=== PATIENT | male | born 1970 | race Two or more races ===

== ENCOUNTER 2019-10-09 15:26 | Inpatient (IN) | payer OTHER ==
[~2019-10-09] VITALS: Ht 180.3 cm; Wt 73.5 kg
[2019-10-09 15:49] VITALS: BP 118/76
--- NOTE | 2019-10-09 15:52 | NUR ---
ED Nurse Note: pt walked in to ED for C/O abdominal pain, distention, bloating, nausea, constipation, unable to opass gas x 2 months. PT and his PMD believe he may have SBO. Pt is alert x 4. VSS as documented.
[2019-10-09] MEDS ORDERED: Dicyclomine HCl 10mg/5ml oral soln ORAL ONE (16:00)
[2019-10-09] MEDS ORDERED: Omnipaque-300 100ml vial INJ PRN (16:00)
[2019-10-09] MEDS ORDERED: Lidocaine 2% Visc 15ml soln ORAL ONE (16:00)
--- NOTE | 2019-10-09 16:05 | Emergency Room Report ---
History of Present Illness General Chief Complaint: Abdominal Pain Source: Patient Present Illness HPI Patient is a 48-year-old male presents after increased left lower abdominal pain. Patient reports having constant pain for the past 3 to 4 days. He reports having decreased bowel movements and increased straining with attempt to stool. He reports having previous CT imaging in the past which showed some possible omental hernia. Patient had previous colonoscopy which she reports was negative. He states this occurred approximately 1 to 2 months ago. He denies any vomiting. Denies any other locations of pain. Is followed by Dr. Zapata. Prior Imaging studies at [facility]. Denies flatus. Denies fever or any chills. COVID-19 risk:Contact w/high r: No COVID-19 risk:Travel to affect: No Has patient experienced hughes: No Allergies: Coded Allergies: No Known Allergies (Unverified , 10/09/19) Patient History Past Medical History: see triage record Past Surgical History: none Reviewed Nursing Documentation: PMH: Agreed; PSxH: Agreed Nursing Documentation-PMH Past Medical History: No Stated History Review of Systems All Other Systems: negative except mentioned in HPI Physical Exam Vital Signs Date Time Temp Pulse Resp B/P (MAP) Pulse Ox O2 Delivery O2 Flow Rate FiO2 10/09/19 15:33 90.0 79 18 118/76 (90) 96 Room Air Sp02 EP Interpretation: reviewed, normal General Appearance: normal inspection, well appearing, no apparent distress, alert, GCS 15 Head: atraumatic ENT: normal ENT inspection, hearing grossly normal, normal voice Neck: normal inspection, full range of motion, supple, no bony tend Respiratory: normal inspection, lungs clear, normal breath sounds, no respiratory distress, no retraction, no wheezing Cardiovascular #1: regular rate, rhythm, no edema Gastrointestinal: normal inspection, normal bowel sounds, soft, no guarding, no hernia, other - left lower abd mild tenderness. Genitourinary: no CVA tenderness Musculoskeletal: normal inspection, back normal, normal range of motion Neurologic: alert, motor strength/tone normal, oracle distribution consultant III-XII nml as tested, oriented x3, responsive, speech normal, normal inspection Psychiatric: normal inspection, judgement/insight normal, mood/affect normal Skin: no rash Medical Decision Making Diagnostic Impression: Primary Impression: Intractable abdominal pain ER Course Patient presented for abdominal pain. Differential diagnosis includes not limited to fecal impaction, bowel obstruction, hernia, among others. Because of complexity of patient's case laboratory tests and imaging studies were ordered.CT imaging of the abdomen pelvis read by radiology showed no evidence of acute abdominal process with liver lesion in the tip of the right hepatic lobe 3 cm in diameter patient was discussed with Dr. Love per PMD request of patients Dr. Zapata. Patient will be admitted to Dr. Weaver per Dr. Love request. Labs Test 10/09/19 15:45 White Blood Count 5.6 K/UL (4.8-10.8) Red Blood Count 4.87 M/UL (4.70-6.10) Hemoglobin 14.8 G/DL (14.2-18.0) Hematocrit 43.5 % (42.0-52.0) Mean Corpuscular Volume 89 FL (80-99) Mean Corpuscular Hemoglobin 30.4 PG (27.0-31.0) Mean Corpuscular Hemoglobin Concent 34.1 G/DL (32.0-36.0) Red Cell Distribution Width 12.5 % (11.6-14.8) Platelet Count 160 K/UL (150-450) Mean Platelet Volume 7.0 FL (6.5-10.1) Neutrophils (%) (Auto) 72.6 % (45.0-75.0) Lymphocytes (%) (Auto) 20.7 % (20.0-45.0) Monocytes (%) (Auto) 4.8 % (1.0-10.0) Eosinophils (%) (Auto) 1.2 % (0.0-3.0) Basophils (%) (Auto) 0.7 % (0.0-2.0) Prothrombin Time 10.1 SEC (9.30-11.50) Prothromb Time International Ratio 0.9 (0.9-1.1) Activated Partial Thromboplast Time 27 SEC (23-33) Urine Color Pale yellow Urine Appearance Clear Urine pH 7 (4.5-8.0) Urine Specific [place] 1.010 (1.005-1.035) Urine Protein Negative (NEGATIVE) Urine Glucose (UA) Negative (NEGATIVE) Urine Ketones 1+ (NEGATIVE) Urine Blood Negative (NEGATIVE) Urine Nitrite Negative (NEGATIVE) Urine Bilirubin Negative (NEGATIVE) Urine Urobilinogen Normal MG/DL (0.0-1.0) Urine Leukocyte Esterase Negative (NEGATIVE) Sodium Level 144 MMOL/L (136-145) Potassium Level 4.1 MMOL/L (3.5-5.1) Chloride Level 106 MMOL/L (98-107) Carbon Dioxide Level 29 MMOL/L (21-32) Anion Gap 9 mmol/L (5-15) Blood Urea Nitrogen 20 mg/dL (7-18) Creatinine 1.0 MG/DL (0.55-1.30) Estimat Glomerular Filtration Rate > 60 mL/min (>60) Glucose Level 82 MG/DL (74-106) Calcium Level 9.4 MG/DL (8.5-10.1) Total Bilirubin 0.3 MG/DL (0.2-1.0) Aspartate Amino Transf (AST/SGOT) 16 U/L (15-37) Alanine Aminotransferase (ALT/SGPT) 20 U/L (12-78) Alkaline Phosphatase 54 U/L (46-116) Total Protein 7.3 G/DL (6.4-8.2) Albumin 4.2 G/DL (3.4-5.0) Globulin 3.1 g/dL Albumin/Globulin Ratio 1.4 (1.0-2.7) Lipase 169 U/L (73-393) Last Vital Signs Date Time Temp Pulse Resp B/P (MAP) Pulse Ox O2 Delivery O2 Flow Rate FiO2 10/09/19 15:49 98.0 84 18 118/76 96 Room Air Status: unchanged Disposition: ADMITTED INPATIENT Condition: Serious Scripts Temazepam* (RESTORIL*) 15 Mg Capsule 15 MG ORAL HSPRN PRN for 30 Days, #30 CAP 1 Refill Prov: Sangeetha Nicole M.D. 10/11/19 Linaclotide (LINZESS) 145 Mcg Capsule 145 MCG PO DAILY for 30 Days, #30 CAP Prov: Sangeetha NicoleDGerri 10/11/19 Lorazepam* (ATIVAN*) 1 Mg Tablet 1 MG ORAL Q12HR PRN for 14 Days, #28 TAB Prov: Sangeetha Nicole M.D. 10/11/19 Jonathan Aguillon MD Oct 09, 2019 16:05
--- NOTE | 2019-10-09 16:05 | NUR ---
ED Nurse Note: blood and urine sent to lab
[2019-10-09 16:22] LABS: APPEARANCE,URINE CLEAR; BILIRUBIN, URINE NEGATIVE (NEGATIVE); COLOR,URINE PALE YELLOW; GLUCOSE, URINE (UA) NEGATIVE (NEGATIVE); KETONES,URINE 1+ (NEGATIVE); LEUKOCYTE ESTERASE ,URINE NEGATIVE (NEGATIVE); NITRITE,URINE NEGATIVE (NEGATIVE); PH,URINE 7 (4.5-8.0); PROTEIN,URINE NEGATIVE (NEGATIVE); UROBILINOGEN,URINE NORMAL MG/DL (0.0-1.0)
[2019-10-09 16:27] LABS: INR 0.9 (0.9-1.1)
[2019-10-09 16:29] LABS: BASOPHILS % (AUTO) 0.7 % (0.0-2.0); EOSINOPHILS % (AUTO) 1.2 % (0.0-3.0); HEMATOCRIT 43.5 % (42.0-52.0); HEMOGLOBIN 14.8 G/DL (14.2-18.0); LYMPHOCYTES % (AUTO) 20.7 % (20.0-45.0); MEAN CORPUSCULAR VOLUME 89 FL (80-99); MONOCYTES % (AUTO) 4.8 % (1.0-10.0); NEUTROPHILS % (AUTO) 72.6 % (45.0-75.0); PLATELET COUNT 160 K/UL (150-450); RED BLOOD COUNT 4.87 M/UL (4.70-6.10); RED CELL DISTRIBUTION WIDTH 12.5 % (11.6-14.8); WHITE BLOOD COUNT 5.6 K/UL (4.8-10.8)
[2019-10-09 16:33] LABS: ANION GAP 9 mmol/L (5-15); BLOOD UREA NITROGEN 20 mg/dL (7-18); CALCIUM 9.4 MG/DL (8.5-10.1); CARBON DIOXIDE 29 MMOL/L (21-32); CHLORIDE 106 MMOL/L (98-107); POTASSIUM 4.1 MMOL/L (3.5-5.1); SODIUM 144 MMOL/L (136-145)
[2019-10-09 16:37] LABS: ALANINE AMINOTRANSFERASE 20 U/L (12-78); ALBUMIN 4.2 G/DL (3.4-5.0); ALBUMIN/GLOBULIN RATIO 1.4 (1.0-2.7); ALKALINE PHOSPHATASE 54 U/L (46-116); ASPARTATE AMINO TRANSFERASE 16 U/L (15-37); BILIRUBIN,TOTAL 0.3 MG/DL (0.2-1.0)
--- NOTE | 2019-10-09 16:59 | NUR ---
ED Nurse Note: Pt in radiology
--- NOTE | 2019-10-09 17:22 | Diagnostic Imaging Report ---
Clinical Indication: Increased left lower abdominal pain for the past 3-4 days Technique: No oral contrast utilized, per emergency room physician request IV administration nonionic contrast. Venous phase spiral acquisition obtained through the abdomen and pelvis. Multiplanar reconstructions were generated. Total dose length product 220 mGycm. CTDIvol(s) 4 mGy. Dose reduction achieved using automated exposure control Comparison: none Findings: Lack of enteric contrast limits assessment of the GI tract. No evidence of colonic diverticulosis or diverticulitis. The appendix is normal. No small bowel distention. No free or loculated intraperitoneal gas or fluid is evident. The distal esophagus, stomach, duodenum are unremarkable. The liver demonstrates a lesion at the tip of the right hepatic lobe which measures 3 cm in diameter. This is mostly hypoattenuation, but demonstrates some intense peripheral enhancement. There there are 2 1 cm diameter cysts in segment 8. Other subcentimeter low-attenuation liver lesions are demonstrated which are too small to characterize. The pancreas, spleen, adrenals are unremarkable. The kidneys demonstrate cysts bilaterally. No renal or ureteral calculi, hydronephrosis, or hydroureter demonstrated. The bladder is unremarkable. No pelvic mass or adenopathy. The included lung bases are clear. The bones are unremarkable. Impression: Limited assessment of the GI tract, due to lack of enteric contrast administration No definite acute abnormality 3 cm right lobe liver lesion, appearance highly suggestive of but not diagnostic for benign hemangioma. Recommend further evaluation with hemangioma protocol CT or MRI Incidental finding of hepatic and renal cysts. Subcentimeter low-attenuation liver lesions are too small to characterize, most likely represent benign simple cysts and no further follow-up is necessary. The CT scanner at [facility] is accredited by the [employer] and the scans are performed using protocols designed to limit radiation exposure to as low as reasonably achievable to attain images of sufficient resolution adequate for diagnostic evaluation.
--- NOTE | 2019-10-09 17:59 | NUR ---
ED Nurse Note: Dr. Love @ bedside
--- NOTE | 2019-10-09 18:43 | Consultation ---
History of Present Illness General Date patient seen: Oct 09, 2019 Reason for Hospitalization: Abdominal Pain Present Illness HPI This is a very pleasant 48-year-old male who presented to [facility] for evaluation of worsening abdominal pain and minimal bowel movements and flatus. I was initially called by the patient's primary care physician Dr. Perez earlier this morning to discuss patient's care and plan. A portion of the history was provided by the patient's primary care physician as well as prior testing that had been done. I advised PCP and patient to follow-up with me as an outpatient but as the day progressed patient felt he needed to be seen urgently as pain was persistent and he has been worsening over a period of time and therefore did not feel safe or comfortable at home. Patient came to the emerge department for evaluation and history is with obtained from him personally. He states that over the past 2 months he is developed worsening decrease in bowel movements with inability to tolerate oral intake of food as well. He states that he is lost nearly 30 pounds over the past 2 months and is becoming increasingly more fatigued. He describes a left lower quadrant abdominal pain without associated nausea or emesis. He states that initially 2 months ago he started noticing changes in his bowel habits but is progressively worsened and he has not had a bowel movement or flatus in 3 days now. He states the only thing he can recall is a picture he shows me of some mucus with brown sediment in a toilet bowl over the past few days. He cannot recall the last normal bowel movement he had. States he has tried multiple over-the- counter laxatives without any significant improvement and is even more concerned that after all his laxatives he still not having bowel movements as they may be causing him more discomfort. He had a colonoscopy in August which identified normal findings. States last good bowel movement he had was prior to the colonoscopy and the [facility] did clear him out for the colonoscopy. He states ever since colonoscopy he feels it may have been worsening as well. Pain described as cramping left lower quadrant pain without radiation. He is otherwise healthy and has had a significant work-up including hepatitis and HIV and thyroid studies as an outpatient. Liver studies which are all normal he has had a GI transit study at [facility] but results currently not available. He had an MRI at [facility] and states that only identified a hemangioma. Patient denies any past medical history. He denies any drug use. He denies any past surgeries. He denies any medication use. Allergies: Coded Allergies: No Known Allergies (Unverified , 10/09/19) Patient History History Provided By: Patient Healthcare decision maker Resuscitation status Advanced Directive on File Past Medical/Surgical History Past Medical/Surgical History: (1) Intractable abdominal pain Review of Systems Review of Symptoms General ROS: no weight loss or fever Psychological ROS: no depression or mood changes, no memory loss Ophthalmic ROS: no visual changes or eye irritation ENT ROS: no nasal congestion, hearing loss, dizziness Allergy and Immunology ROS: no allergic symptoms or urticaria Hematological and Lymphatic ROS: no swollen glands, unusual bleeding or bruising Endocrine ROS: no polyuria, polydipsia, weight changes, temperature intolerance Respiratory ROS: no cough, shortness of breath, or wheezing Cardiovascular ROS: no chest pain or dyspnea on exertion Gastrointestinal ROS: denies abdominal pain, bright red blood in stool. Musculoskeletal ROS: no myalgias or arthralgias Neurological ROS: no TIA or stroke symptoms Dermatological ROS: no new or changing skin lesions, rashes or pruritis Physical Exam Physical Exam General appearance: alert, cooperative, no distress, appears stated age Head: Normocephalic, without obvious abnormality, atraumatic Eyes: conjunctivae/corneas clear. PERRL, EOM's intact. Fundi benign Throat: Lips, mucosa, and tongue normal. Teeth and gums normal Neck: supple, symmetrical, trachea midline, no adenopathy, thyroid: not enlarged, symmetric, no tenderness/mass/nodules, no carotid bruit and no JVD Lungs: clear to auscultation bilaterally Heart: regular rate and rhythm, S1, S2 normal, no murmur, click, rub or gallop Abdomen: soft, LLQ tender. Bowel sounds decreased. No masses, no organomegaly. umbilical ventral hernia non reducible fat. left groin tender on exam around inguinal canal Extremities: extremities normal, atraumatic, no cyanosis or edema Pulses: 2+ and symmetric Skin: Skin color, texture, turgor normal. No rashes or lesions Neurologic: Grossly normal Digital rectal exam performed at bedside did not identify any significant abnormalities. The rectal vault was fairly empty given CT findings which is mildly abnormal Last 24 Hour Vital Signs Date Time Temp Pulse Resp B/P (MAP) Pulse Ox O2 Delivery O2 Flow Rate FiO2 10/09/19 15:49 98.0 84 18 118/76 96 Room Air 10/09/19 15:49 84 18 Room Air 10/09/19 15:33 90.0 79 18 118/76 (90) 96 Room Air Laboratory Tests Test 10/09/19 15:45 White Blood Count 5.6 K/UL (4.8-10.8) Red Blood Count 4.87 M/UL (4.70-6.10) Hemoglobin 14.8 G/DL (14.2-18.0) Hematocrit 43.5 % (42.0-52.0) Mean Corpuscular Volume 89 FL (80-99) Mean Corpuscular Hemoglobin 30.4 PG (27.0-31.0) Mean Corpuscular Hemoglobin Concent 34.1 G/DL (32.0-36.0) Red Cell Distribution Width 12.5 % (11.6-14.8) Platelet Count 160 K/UL (150-450) Mean Platelet Volume 7.0 FL (6.5-10.1) Neutrophils (%) (Auto) 72.6 % (45.0-75.0) Lymphocytes (%) (Auto) 20.7 % (20.0-45.0) Monocytes (%) (Auto) 4.8 % (1.0-10.0) Eosinophils (%) (Auto) 1.2 % (0.0-3.0) Basophils (%) (Auto) 0.7 % (0.0-2.0) Prothrombin Time 10.1 SEC (9.30-11.50) Prothromb Time International Ratio 0.9 (0.9-1.1) Activated Partial Thromboplast Time 27 SEC (23-33) Urine Color Pale yellow Urine Appearance Clear Urine pH 7 (4.5-8.0) Urine Specific [place] 1.010 (1.005-1.035) Urine Protein Negative (NEGATIVE) Urine Glucose (UA) Negative (NEGATIVE) Urine Ketones 1+ (NEGATIVE) H Urine Blood Negative (NEGATIVE) Urine Nitrite Negative (NEGATIVE) Urine Bilirubin Negative (NEGATIVE) Urine Urobilinogen Normal MG/DL (0.0-1.0) Urine Leukocyte Esterase Negative (NEGATIVE) Sodium Level 144 MMOL/L (136-145) Potassium Level 4.1 MMOL/L (3.5-5.1) Chloride Level 106 MMOL/L (98-107) Carbon Dioxide Level 29 MMOL/L (21-32) Anion Gap 9 mmol/L (5-15) Blood Urea Nitrogen 20 mg/dL (7-18) H Creatinine 1.0 MG/DL (0.55-1.30) Estimat Glomerular Filtration Rate > 60 mL/min (>60) Glucose Level 82 MG/DL (74-106) Calcium Level 9.4 MG/DL (8.5-10.1) Total Bilirubin 0.3 MG/DL (0.2-1.0) Aspartate Amino Transf (AST/SGOT) 16 U/L (15-37) Alanine Aminotransferase (ALT/SGPT) 20 U/L (12-78) Alkaline Phosphatase 54 U/L (46-116) Total Protein 7.3 G/DL (6.4-8.2) Albumin 4.2 G/DL (3.4-5.0) Globulin 3.1 g/dL Albumin/Globulin Ratio 1.4 (1.0-2.7) Lipase 169 U/L (73-393) Height (Feet): 5 Height (Inches): 11.00 Weight (Pounds): 162 Medications Current Medications Medications (Trade) Dose Ordered Sig/Gemini Route PRN Reason Start Time Stop Time Status Last Admin Dose Admin Iohexol (OMNIPAQUE-300 100ml) 100 ml NOW PRN INJ Radiology Procedure 10/09/19 16:00 10/11/19 15:57 Assessment/Plan Problem List: (1) Intractable abdominal pain Assessment & Plan: 48 year old male otherwise healthy with persistent worsening abdominal pain Weight loss significant Not tolerating p.o. intake Multiple recent studies performed without findings to explain etiology of patient's symptoms no bm no flatus CT as below discussed care plan patient does not feel comfortable going home admit go lytely am labs will discuss with patients PCP iv fluid hydration will follow with abdominal exam thank you Lack of enteric contrast limits assessment of the GI tract. No evidence of colonic diverticulosis or diverticulitis. The appendix is normal. No small bowel distention. No free or loculated intraperitoneal gas or fluid is evident. The distal esophagus, stomach, duodenum are unremarkable. The liver demonstrates a lesion at the tip of the right hepatic lobe which measures 3 cm in diameter. This is mostly hypoattenuation, but demonstrates some intense peripheral enhancement. There there are 2 1 cm diameter cysts in segment 8. Other subcentimeter low-attenuation liver lesions are demonstrated which are too small to characterize. The pancreas, spleen, adrenals are unremarkable. The kidneys demonstrate cysts bilaterally. No renal or ureteral calculi, hydronephrosis, or hydroureter demonstrated. The bladder is unremarkable. No pelvic mass or adenopathy. The included lung bases are clear. The bones are unremarkable. Impression: Limited assessment of the GI tract, due to lack of enteric contrast administration No definite acute abnormality 3 cm right lobe liver lesion, appearance highly suggestive of but not diagnostic for benign hemangioma. Recommend further evaluation with hemangioma protocol CT or MRI Incidental finding of hepatic and renal cysts. Subcentimeter low-attenuation liver lesions are too small to characterize, most likely represent benign simple cysts and no further follow-up is necessary. ICD Codes: R10.9 - Unspecified abdominal pain SNOMED: [id number] Nakul Love Oct 09, 2019 18:43
[2019-10-09] MEDS ORDERED: Milk of Magnesia 30ml Ud ORAL PRN (18:45)
[2019-10-09] MEDS ORDERED: Mylanta II UD 30ml ORAL PRN (18:45)
[2019-10-09] MEDS ORDERED: Acetaminophen 650 MG SUPP RECTAL PRN (18:45)
[2019-10-09] MEDS ORDERED: DiphenhydrAMINE 25mg Tab ORAL PRN (18:45)
[2019-10-09] MEDS ORDERED: Miralax 17gm pkt ORAL PRN (18:45)
--- NOTE | 2019-10-09 19:10 | NUR ---
HAND-OFF: Report given to SEYMOUR Wayne. Pt in stable condition; plan of care endorsed.
--- NOTE | 2019-10-09 19:30 | NUR ---
ED Nurse Note: Recieved report from am nurse to resume care, pt in bed awake, alert and oriented x 4, pt has patent saline lock, waiting for room for admission, deneis pain, slightly anxious about plan of care, pt denies cp, no sob or labored breathing, will resume care as ordered and clsoely monitor while waiting for room for hospital admission.
[2019-10-09 20:00] VITALS: BP 126/72
--- NOTE | 2019-10-09 21:10 | NUR ---
ED Nurse Note: Pt has room for admission, report called to SEYMOUR [place] on unit, pt is awake and alert, IV site patent, belongings list completed, pt being taken to unit via gurney with ER-[facility]last noted during pt transport.
--- NOTE | 2019-10-09 21:58 | NUR ---
Nurses notes Report given from Rosana in the ER. Pt admitted for intractable abdominal pain. awake alert oriented x4 no acute distress noted. Pt able to make needs known. Pt has IV to RFA infusing [id number] @ 125ml/hr. Pt voids no c/o of pain at this time. call light in reach bed in lowest position will continue to provide treatment and care
[2019-10-09 22:08] VITALS: BP 113/69
[2019-10-09] MEDS: Nulytely 4L ORAL SCH (23:12)
[2019-10-09] MEDS: D5NS w/KCl 40mEq 1000ml 1,000 ML IV SCH (23:13)
[2019-10-09] MEDS: Docusate 100mg cap ORAL SCH (23:21)
[2019-10-09] MEDS: Metoclopramide 10mg/2ml Inj IVP SCH (23:22)
[2019-10-10] VITALS: BP 119/67
[2019-10-10 04:00] VITALS: BP 120/72
[2019-10-10] MEDS: Metoclopramide 10mg/2ml Inj IVP SCH ×2 (04:36→09:44)
[2019-10-10] MEDS: LORazepam 1mg tab ORAL PRN ×3 (04:36→18:05)
[2019-10-10 06:16] LABS: BASOPHILS % (AUTO) 0.6 % (0.0-2.0); EOSINOPHILS % (AUTO) 2.7 % (0.0-3.0); HEMATOCRIT 38.9 % (42.0-52.0); HEMOGLOBIN 13.6 G/DL (14.2-18.0); LYMPHOCYTES % (AUTO) 24.8 % (20.0-45.0); MEAN CORPUSCULAR VOLUME 87 FL (80-99); MONOCYTES % (AUTO) 5.5 % (1.0-10.0); NEUTROPHILS % (AUTO) 66.4 % (45.0-75.0); PLATELET COUNT 134 K/UL (150-450); RED CELL DISTRIBUTION WIDTH 11.1 % (11.6-14.8)
[2019-10-10 06:40] LABS: AMYLASE 51 U/L (25-115)
[2019-10-10] MEDS: D5NS w/KCl 40mEq 1000ml 1,000 ML IV SCH ×2 (06:51→13:55)
[2019-10-10 06:52] LABS: ALANINE AMINOTRANSFERASE 21 U/L (12-78); ALBUMIN 3.5 G/DL (3.4-5.0); ALBUMIN/GLOBULIN RATIO 1.3 (1.0-2.7); ALKALINE PHOSPHATASE 39 U/L (46-116); ANION GAP 10 mmol/L (5-15); ASPARTATE AMINO TRANSFERASE 15 U/L (15-37); BILIRUBIN,TOTAL 0.4 MG/DL (0.2-1.0); BLOOD UREA NITROGEN 13 mg/dL (7-18); CALCIUM 9.6 MG/DL (8.5-10.1); CARBON DIOXIDE 27 MMOL/L (21-32); CHLORIDE 109 MMOL/L (98-107); CHOLESTEROL 181 MG/DL (< 200); CREATININE 0.9 MG/DL (0.55-1.30); HDL CHOLESTEROL 76 MG/DL (40-60); POTASSIUM 3.7 MMOL/L (3.5-5.1); SODIUM 146 MMOL/L (136-145); TRIGLYCERIDES 37 MG/DL (30-150)
--- NOTE | 2019-10-10 07:30 | NUR ---
NURSE NOTES: Patient sitting in bed. No complain of pain or distress at this time. Skin intact and dry. IV dressing intact and dry. Bed lowest position. Call light within reach. Will continue to monitor.
[2019-10-10 08:00] VITALS: BP 112/64
[2019-10-10] MEDS: Docusate 100mg cap ORAL SCH ×2 (09:45→20:45)
--- NOTE | 2019-10-10 11:24 | NUR ---
NURSE NOTES: Spoke to Sangeetha Varela regarding patient and new order received. Order read back and carried out.
--- NOTE | 2019-10-10 11:44 | General Progress Note ---
Assessment/Plan Assessment/Plan: abd pain constipation wt loss liver hemangioma? Linzess simethicone pro biotics tumor markers CXR will fu Subjective ROS Limited/Unobtainable: Yes Allergies: Coded Allergies: No Known Allergies (Unverified , 10/09/19) Objective Last 24 Hour Vital Signs Date Time Temp Pulse Resp B/P (MAP) Pulse Ox O2 Delivery O2 Flow Rate FiO2 10/10/19 09:00 Room Air 10/10/19 08:00 98.6 59 18 112/64 (80) 98 10/10/19 04:00 97.8 60 18 120/72 (88) 98 10/10/19 00:00 97.5 53 18 119/67 (84) 99 10/09/19 22:35 Room Air 10/09/19 22:29 Room Air 10/09/19 22:08 97.6 58 16 113/69 (84) 100 10/09/19 21:35 98.4 81 18 126/72 98 Room Air 10/09/19 20:00 98.4 81 18 126/72 98 Room Air 10/09/19 15:49 98.0 84 18 118/76 96 Room Air 10/09/19 15:49 84 18 Room Air 10/09/19 15:33 90.0 79 18 118/76 (90) 96 Room Air Intake and Output 10/09/19 10/10/19 19:00 07:00 Intake Total 4000 ml Balance 4000 ml Intake Other 4000 ml # Voids 1 3 Laboratory Tests 10/09/19 15:45: White Blood Count 5.6, Red Blood Count 4.87, Hemoglobin 14.8, Hematocrit 43.5, Mean Corpuscular Volume 89, Mean Corpuscular Hemoglobin 30.4, Mean Corpuscular Hemoglobin Concent 34.1, Red Cell Distribution Width 12.5, Platelet Count 160, Mean Platelet Volume 7.0, Neutrophils (%) (Auto) 72.6, Lymphocytes (%) (Auto) 20.7, Monocytes (%) (Auto) 4.8, Eosinophils (%) (Auto) 1.2, Basophils (%) (Auto ) 0.7, Prothrombin Time 10.1, Prothromb Time International Ratio 0.9, Activated Partial Thromboplast Time 27, Urine Color Pale yellow, Urine Appearance Clear, Urine pH 7, Urine Specific [place] 1.010, Urine Protein Negative, Urine Glucose (UA) Negative, Urine Ketones 1+H, Urine Blood Negative, Urine Nitrite Negative, Urine Bilirubin Negative, Urine Urobilinogen Normal, Urine Leukocyte Esterase Negative, Sodium Level 144, Potassium Level 4.1, Chloride Level 106, Carbon Dioxide Level 29, Anion Gap 9, Blood Urea Nitrogen 20H, Creatinine 1.0, Estimat Glomerular Filtration Rate > 60, Glucose Level 82, Calcium Level 9.4, Total Bilirubin 0.3, Aspartate Amino Transf (AST/SGOT) 16, Alanine Aminotransferase ( ALT/SGPT) 20, Alkaline Phosphatase 54, Total Protein 7.3, Albumin 4.2, Globulin 3.1, Albumin/Globulin Ratio 1.4, Lipase 169 10/10/19 05:10: White Blood Count 4.0L, Red Blood Count 4.50L, Hemoglobin 13.6L, Hematocrit 38.9L, Mean Corpuscular Volume 87, Mean Corpuscular Hemoglobin 30.1, Mean Corpuscular Hemoglobin Concent 34.8, Red Cell Distribution Width 11.1L, Platelet Count 134L, Mean Platelet Volume 5.9L, Neutrophils (%) (Auto) 66.4, Lymphocytes (%) (Auto) 24.8, Monocytes (%) (Auto) 5.5, Eosinophils (%) (Auto) 2.7, Basophils (%) (Auto) 0.6, Prothrombin Time 10.7, Prothromb Time International Ratio 1.0, Activated Partial Thromboplast Time 28, Sodium Level 146H, Potassium Level 3.7, Chloride Level 109H, Carbon Dioxide Level 27, Anion Gap 10, Blood Urea Nitrogen 13, Creatinine 0.9, Estimat Glomerular Filtration Rate > 60, Glucose Level 95, Calcium Level 9.6, Total Bilirubin 0.4, Aspartate Amino Transf (AST/SGOT) 15, Alanine Aminotransferase (ALT/SGPT) 21, Alkaline Phosphatase 39L, Total Protein 6.2L, Albumin 3.5, Globulin 2.7, Albumin/ Globulin Ratio 1.3, Erythrocyte Sedimentation Rate 2, Hemoglobin A1c 5.7, C- Reactive Protein, Quantitative < 0.4, Pro-B-Type Natriuretic Peptide 26, Triglycerides Level 37, Cholesterol Level 181, LDL Cholesterol 92, HDL Cholesterol 76H, Cholesterol/HDL Ratio 2.4L, Amylase Level 51, Prostate Specific Antigen 0.34, Thyroid Stimulating Hormone (TSH) 2.105 Height (Feet): 5 Height (Inches): 11.00 Weight (Pounds): 162 General Appearance: alert EENT: normal ENT inspection Neck: supple Cardiovascular: normal rate Respiratory/Chest: decreased breath sounds Abdomen: normal bowel sounds, non tender, soft Extremities: non-tender Vipul Beal MD Oct 10, 2019 11:44
[2019-10-10] MEDS ORDERED: Simethicone 80mg tab ORAL PRN (11:45)
--- NOTE | 2019-10-10 11:47 | NUR ---
NURSE NOTES: Spoke to Dr. Beal regarding diet and new order received. Order read back and carried out.
[2019-10-10 12:00] VITALS: BP 119/79
--- NOTE | 2019-10-10 12:45 | NUR ---
NURSE NOTES: Patient off unit for procedure in stable condition. IV patent.
--- NOTE | 2019-10-10 13:03 | NUR ---
NURSE NOTES: Patient came back from procedure in stable condition. Spoke to regarding diet and new order received. Order read back and carried out.
--- NOTE | 2019-10-10 13:07 | Diagnostic Imaging Report ---
EXAM: XR Chest, 2 Views CLINICAL HISTORY: ABD PAIN TECHNIQUE: Frontal and lateral views of the chest. COMPARISON: No relevant prior studies available. FINDINGS: Lungs: Pulmonary hyperexpansion could reflect obstructive pulmonary disease. No consolidation. Pleural space: Unremarkable. No pneumothorax. Heart: Unremarkable. No cardiomegaly. Mediastinum: Unremarkable. Bones/joints: Unremarkable. IMPRESSION: Pulmonary hyperexpansion could reflect obstructive pulmonary disease. No consolidation.
[2019-10-10] MEDS: LINACLOTIDE 290 MCG ORAL SCH (13:55)
--- NOTE | 2019-10-10 14:49 | History and Physical ---
History of Present Illness General Reason for Hospitalization: Abdominal Pain Present Illness HPI 48-year-old male with no significant PMH [place] [facility] [place] abdominal pain and constipation for 3 to 4 days. Patient noted abdominal pain has been constant ever since he had his colonoscopy on 09/04/19 that was reported normal. Patient states he had a colonoscopy due to a few isolated episodes of bloody stools a few months prior. He had been on a holisitic diet which included senna and black walnut supplements x2 months. Patient notes LLQ pain has been constant for 2 months, pain feels like spasms/cramping, straining for BMs makes pain worse, patient has not noted anything to make it better. No N/V or decrease in appetite however pt has noted 30# wgt loss since July of this year. States his BMs have been very hard at first, and then appears more mucous like. Denies any black/tarry stools or blood. Pt has tried multiple OTC laxatives with no help. Pt was given GoLYTELY with loose BMs this AM. Denies CP, SOB, f/c, n/v, dysuria at this time. Of note, pt had significant w/u including hepatitis and HIV and thyroid studies as an outpatient. Liver studies were all normal, he has had a GI transit study at [facility] but results currently not available. He had an MRI at [facility] and states that only identified a hemangioma. PCP: Dr. Perez PMH: Omental hernia FH: F: Prostate CA, MM, at age 82 Surgical history: None SH: Ultra marathoner, very physically active however been more sedentary over the last year, denies EtOH/tobacco usage, works in a [employer] Allergies: NKDA Allergies: Coded Allergies: No Known Allergies (Unverified , 10/09/19) Patient History Healthcare decision maker Resuscitation status Advanced Directive on File Review of Systems Constitutional: Denies: no symptoms, see HPI, chills, sweats, fever, malaise, weakness, other Eye: Denies: no symptoms, see HPI, eye pain, blurred vision, tearing, double vision, nose pain, nose congestion, acuity changes, discharge, other ENT: Denies: no symptoms, see HPI, ear pain, ear discharge, nose pain, nose congestion, throat pain, throat swelling, mouth pain, hearing loss, nasal discharge, other Respiratory: Denies: no symptoms, see HPI, cough, orthopnea, shortness of breath, stridor, wheezing, TINEO, sputum, other Cardiovascular: Denies: no symptoms, see HPI, chest pain, edema, palpitations, syncope, PND, other Gastrointestinal: Reports: abdominal pain, constipation; Denies: no symptoms, see HPI, diarrhea, nausea, vomiting, melena, hematemesis, other Genitourinary: Denies: no symptoms, see HPI, discharge, dysuria, frequency, hematuria, pain, retention, incontinence, urgency, vag bleed/dc, other Musculoskeletal: Denies: no symptoms, see HPI, back pain, gout, joint pain, joint swelling, muscle pain, muscle stiffness, other Skin: Denies: no symptoms, see HPI, rash, change in color, change in hair/nails , dryness, lesions, other Neurological: Denies: no symptoms, see HPI, headache, numbness, paresthesia, seizure, tingling, tremors, focal weakness, syncope, dizziness, other Endocrine: Denies: no symptoms, see HPI, excessive sweating, flushing, intolerance to temperature, increased thirst, increased urine, unexplained weight loss, other Physical Exam Last 24 Hour Vital Signs Date Time Temp Pulse Resp B/P (MAP) Pulse Ox O2 Delivery O2 Flow Rate FiO2 10/10/19 12:00 97.9 63 20 119/79 (92) 100 10/10/19 09:00 Room Air 10/10/19 08:00 98.6 59 18 112/64 (80) 98 10/10/19 04:00 97.8 60 18 120/72 (88) 98 10/10/19 00:00 97.5 53 18 119/67 (84) 99 10/09/19 22:35 Room Air 10/09/19 22:29 Room Air 10/09/19 22:08 97.6 58 16 113/69 (84) 100 10/09/19 21:35 98.4 81 18 126/72 98 Room Air 10/09/19 20:00 98.4 81 18 126/72 98 Room Air 10/09/19 15:49 98.0 84 18 118/76 96 Room Air 10/09/19 15:49 84 18 Room Air 10/09/19 15:33 90.0 79 18 118/76 (90) 96 Room Air Intake and Output 10/09/19 10/10/19 19:00 07:00 Intake Total 4000 ml Balance 4000 ml Intake Other 4000 ml # Voids 1 3 Laboratory Tests Test 10/09/19 15:45 10/10/19 05:10 White Blood Count 5.6 K/UL (4.8-10.8) 4.0 K/UL (4.8-10.8) L Red Blood Count 4.87 M/UL (4.70-6.10) 4.50 M/UL (4.70-6.10) L Hemoglobin 14.8 G/DL (14.2-18.0) 13.6 G/DL (14.2-18.0) L Hematocrit 43.5 % (42.0-52.0) 38.9 % (42.0-52.0) L Mean Corpuscular Volume 89 FL (80-99) 87 FL (80-99) Mean Corpuscular Hemoglobin 30.4 PG (27.0-31.0) 30.1 PG (27.0-31.0) Mean Corpuscular Hemoglobin Concent 34.1 G/DL (32.0-36.0) 34.8 G/DL (32.0-36.0) Red Cell Distribution Width 12.5 % (11.6-14.8) 11.1 % (11.6-14.8) L Platelet Count 160 K/UL (150-450) 134 K/UL (150-450) L Mean Platelet Volume 7.0 FL (6.5-10.1) 5.9 FL (6.5-10.1) L Neutrophils (%) (Auto) 72.6 % (45.0-75.0) 66.4 % (45.0-75.0) Lymphocytes (%) (Auto) 20.7 % (20.0-45.0) 24.8 % (20.0-45.0) Monocytes (%) (Auto) 4.8 % (1.0-10.0) 5.5 % (1.0-10.0) Eosinophils (%) (Auto) 1.2 % (0.0-3.0) 2.7 % (0.0-3.0) Basophils (%) (Auto) 0.7 % (0.0-2.0) 0.6 % (0.0-2.0) Prothrombin Time 10.1 SEC (9.30-11.50) 10.7 SEC (9.30-11.50) Prothromb Time International Ratio 0.9 (0.9-1.1) 1.0 (0.9-1.1) Activated Partial Thromboplast Time 27 SEC (23-33) 28 SEC (23-33) Urine Color Pale yellow Urine Appearance Clear Urine pH 7 (4.5-8.0) Urine Specific [place] 1.010 (1.005-1.035) Urine Protein Negative (NEGATIVE) Urine Glucose (UA) Negative (NEGATIVE) Urine Ketones 1+ (NEGATIVE) H Urine Blood Negative (NEGATIVE) Urine Nitrite Negative (NEGATIVE) Urine Bilirubin Negative (NEGATIVE) Urine Urobilinogen Normal MG/DL (0.0-1.0) Urine Leukocyte Esterase Negative (NEGATIVE) Sodium Level 144 MMOL/L (136-145) 146 MMOL/L (136-145) H Potassium Level 4.1 MMOL/L (3.5-5.1) 3.7 MMOL/L (3.5-5.1) Chloride Level 106 MMOL/L (98-107) 109 MMOL/L (98-107) H Carbon Dioxide Level 29 MMOL/L (21-32) 27 MMOL/L (21-32) Anion Gap 9 mmol/L (5-15) 10 mmol/L (5-15) Blood Urea Nitrogen 20 mg/dL (7-18) H 13 mg/dL (7-18) Creatinine 1.0 MG/DL (0.55-1.30) 0.9 MG/DL (0.55-1.30) Estimat Glomerular Filtration Rate > 60 mL/min (>60) > 60 mL/min (>60) Glucose Level 82 MG/DL (74-106) 95 MG/DL (74-106) Calcium Level 9.4 MG/DL (8.5-10.1) 9.6 MG/DL (8.5-10.1) Total Bilirubin 0.3 MG/DL (0.2-1.0) 0.4 MG/DL (0.2-1.0) Aspartate Amino Transf (AST/SGOT) 16 U/L (15-37) 15 U/L (15-37) Alanine Aminotransferase (ALT/SGPT) 20 U/L (12-78) 21 U/L (12-78) Alkaline Phosphatase 54 U/L (46-116) 39 U/L (46-116) L Total Protein 7.3 G/DL (6.4-8.2) 6.2 G/DL (6.4-8.2) L Albumin 4.2 G/DL (3.4-5.0) 3.5 G/DL (3.4-5.0) Globulin 3.1 g/dL 2.7 g/dL Albumin/Globulin Ratio 1.4 (1.0-2.7) 1.3 (1.0-2.7) Lipase 169 U/L (73-393) Erythrocyte Sedimentation Rate 2 MM/HR (0-15) Hemoglobin A1c 5.7 % (4.3-6.0) C-Reactive Protein, Quantitative < 0.4 mg/dL (0.00-0.90) Pro-B-Type Natriuretic Peptide 26 pg/mL (0-125) Triglycerides Level 37 MG/DL (30-150) Cholesterol Level 181 MG/DL (< 200) LDL Cholesterol 92 mg/dL (<100) HDL Cholesterol 76 MG/DL (40-60) H Cholesterol/HDL Ratio 2.4 (3.3-4.4) L Amylase Level 51 U/L (25-115) Prostate Specific Antigen 0.34 ng/mL (0.13-4.0) Thyroid Stimulating Hormone (TSH) 2.328 uiU/mL (0.358-3.740) Height (Feet): 5 Height (Inches): 11.00 Weight (Pounds): 162 Medications Current Medications Medications (Trade) Dose Ordered Sig/Gemini Route PRN Reason Start Time Stop Time Status Last Admin Dose Admin Acetaminophen (Tylenol) 650 mg Q4H PRN RECTAL fever 10/09/19 18:45 11/08/19 18:44 Al Hydroxide/Mg Hydroxide (Mylanta II) 30 ml Q6H PRN ORAL dyspepsia 10/09/19 18:45 11/08/19 18:44 Bisacodyl (Dulcolax) 10 mg HSPRN PRN RECTAL Constipation 10/09/19 18:45 01/07/20 18:44 Dextrose (Dextrose 50%) 25 ml Q30M PRN IV Hypoglycemia 10/09/19 18:45 01/07/20 18:44 Dextrose (Dextrose 50%) 50 ml Q30M PRN IV Hypoglycemia 10/09/19 18:45 01/07/20 18:44 Dextrose/ Electrolytes 1,000 ml @ 125 mls/hr Q8H IV 10/09/19 22:30 11/08/19 22:29 10/10/19 13:55 Diphenhydramine HCl (Benadryl) 25 mg Q6H PRN ORAL Itching/Pruritis 10/09/19 18:45 11/08/19 18:44 Docusate Sodium (Colace) 100 mg EVERY 12 HOURS ORAL 10/09/19 21:00 11/08/19 20:59 10/10/19 09:45 Famotidine (Pepcid I.v.) 20 mg Q12HR IVP 10/09/19 21:00 11/08/19 20:59 10/10/19 09:44 Iohexol (OMNIPAQUE-300 100ml) 100 ml NOW PRN INJ Radiology Procedure 10/09/19 16:00 10/11/19 15:57 Lactobacillus Acidophilus (Culturelle) 1 tab TWICE A DAY ORAL 10/10/19 18:00 01/08/20 17:59 Lorazepam (Ativan) 1 mg Q4H PRN ORAL For Anxiety 10/09/19 18:45 10/16/19 18:44 10/10/19 13:55 Non-Formulary Medication (Non-Formulary Med) 1 ea DAILY ORAL 10/10/19 13:00 11/09/19 12:59 10/10/19 13:55 Polyethylene Glycol/ Electrolytes (Nulytely) 4,000 ml ONCE ORAL 10/09/19 23:00 10/10/19 23:59 10/09/19 23:12 Simethicone (Mylicon) 80 mg QID PRN ORAL Abdominal cramps 10/10/19 11:45 01/08/20 11:44 Temazepam (Restoril) 15 mg HSPRN PRN ORAL Insomnia 10/09/19 18:45 10/16/19 18:44 Objective Narrative General: NAD, A&O x 3, ambulating in room easily HEENT: NCAT, EOMi, PEERLA, nares patent and no symmetrical, no tonsillar exudates, mucous membranes moist CV: RRR, no murmurs, rubs, or gallops Pulm: CTAB, No wheezes, rhonchi, or rales, no accessory muscle usage or conversational dyspnea GI: Soft, nontender, nondistended, bowel sounds present Neuro: CN 2-12 grossly intact bilaterally, no focal signs. Ext: No lower extremity edema bilaterally Skin: no rashes lesions or ulcers Msk: Joints symmetrical in upper extremity and lower extremity bilaterally, no joint swelling. Lymph: No lymphadenopathy in upper extremity and lower extremity Assessment/Plan Assessment/Plan: 48-year-old male with no significant PMH presents to [facility] for LLQ abdominal pain and constipation for 3 to 4 days. Of note, pt had significant w/u including hepatitis and HIV and thyroid studies as an outpatient. Liver studies were all normal, e has had a GI transit study at [facility] but results currently not available. He had an MRI at [facility] and states that only identified a hemangioma. #Abdominal pain #Constipation #Weight loss -s/p GoLYTELY with good response, loose BMs in AM -will check tumor markers -linzess -probiotics -CXR pending -GI consulted, Dr. Beal - reccs appreciated -General sx following, recs appreciated #Liver hemangioma -seen on CT Abd/pelvis -pt had o/p MRI which showed hemangioma -ctm -GI following #Anxiety #Insomnia -cont. ativan PRN for anxiety -temazepam 15 mg qHS Time spent on encounter: 70 mins, >50% on pt counseling, coordination of care. Time of note doesn't reflect time of encounter. Sangeetha Nicole M.D. Oct 10, 2019 14:49
[2019-10-10 16:00] VITALS: BP 114/68
[2019-10-10] MEDS: Lactobacillus-GG tablet ORAL SCH (18:04)
--- NOTE | 2019-10-10 19:28 | NUR ---
NURSE NOTES: Received report from SEYMOUR Nicole. Pt is awake, standing up; steady on his feet. No signs of acute distress noted. Pt denies any pain at this time. AOx4; able to make needs known. Checked IV site; patent and flushed. No erythema, bleeding, or infiltration noted. Bed at lowest position. Brakes on. Siderails up x2. Call light within reach. Will continue to monitor.
--- NOTE | 2019-10-10 19:30 | NUR ---
HAND-OFF: Report given to Cynthia AHUJA. Patient in stable condition.
--- NOTE | 2019-10-10 19:49 | Surgery Progress Note ---
Surgery Progress Note Subjective Additional Comments Patient seen examined bedside. States he has had multiple bowel movements and feels much more relieved since given GoLYTELY yesterday. No nausea vomiting fever chills. Tolerating liquid diet. Seen by GI appreciated. Objective Last 24 Hour Vital Signs Date Time Temp Pulse Resp B/P (MAP) Pulse Ox O2 Delivery O2 Flow Rate FiO2 10/10/19 16:00 97.9 51 20 114/68 (83) 98 10/10/19 12:00 97.9 63 20 119/79 (92) 100 10/10/19 09:00 Room Air 10/10/19 08:00 98.6 59 18 112/64 (80) 98 10/10/19 04:00 97.8 60 18 120/72 (88) 98 10/10/19 00:00 97.5 53 18 119/67 (84) 99 10/09/19 22:35 Room Air 10/09/19 22:29 Room Air 10/09/19 22:08 97.6 58 16 113/69 (84) 100 10/09/19 21:35 98.4 81 18 126/72 98 Room Air 10/09/19 20:00 98.4 81 18 126/72 98 Room Air I&O Intake and Output 10/09/19 10/10/19 19:00 07:00 Intake Total 4000 ml Balance 4000 ml Other 4000 ml # Voids 1 3 Cardiovascular: RSR Respiratory: clear Abdomen: soft, flat, non-tender, present bowel sounds, non-distended Extremities: no edema, no tenderness, no cyanosis Laboratory Tests Test 10/10/19 05:10 White Blood Count 4.0 K/UL (4.8-10.8) L Red Blood Count 4.50 M/UL (4.70-6.10) L Hemoglobin 13.6 G/DL (14.2-18.0) L Hematocrit 38.9 % (42.0-52.0) L Mean Corpuscular Volume 87 FL (80-99) Mean Corpuscular Hemoglobin 30.1 PG (27.0-31.0) Mean Corpuscular Hemoglobin Concent 34.8 G/DL (32.0-36.0) Red Cell Distribution Width 11.1 % (11.6-14.8) L Platelet Count 134 K/UL (150-450) L Mean Platelet Volume 5.9 FL (6.5-10.1) L Neutrophils (%) (Auto) 66.4 % (45.0-75.0) Lymphocytes (%) (Auto) 24.8 % (20.0-45.0) Monocytes (%) (Auto) 5.5 % (1.0-10.0) Eosinophils (%) (Auto) 2.7 % (0.0-3.0) Basophils (%) (Auto) 0.6 % (0.0-2.0) Erythrocyte Sedimentation Rate 2 MM/HR (0-15) Prothrombin Time 10.7 SEC (9.30-11.50) Prothromb Time International Ratio 1.0 (0.9-1.1) Activated Partial Thromboplast Time 28 SEC (23-33) Sodium Level 146 MMOL/L (136-145) H Potassium Level 3.7 MMOL/L (3.5-5.1) Chloride Level 109 MMOL/L (98-107) H Carbon Dioxide Level 27 MMOL/L (21-32) Anion Gap 10 mmol/L (5-15) Blood Urea Nitrogen 13 mg/dL (7-18) Creatinine 0.9 MG/DL (0.55-1.30) Estimat Glomerular Filtration Rate > 60 mL/min (>60) Glucose Level 95 MG/DL (74-106) Hemoglobin A1c 5.7 % (4.3-6.0) Calcium Level 9.6 MG/DL (8.5-10.1) Total Bilirubin 0.4 MG/DL (0.2-1.0) Aspartate Amino Transf (AST/SGOT) 15 U/L (15-37) Alanine Aminotransferase (ALT/SGPT) 21 U/L (12-78) Alkaline Phosphatase 39 U/L (46-116) L C-Reactive Protein, Quantitative < 0.4 mg/dL (0.00-0.90) Pro-B-Type Natriuretic Peptide 26 pg/mL (0-125) Total Protein 6.2 G/DL (6.4-8.2) L Albumin 3.5 G/DL (3.4-5.0) Globulin 2.7 g/dL Albumin/Globulin Ratio 1.3 (1.0-2.7) Triglycerides Level 37 MG/DL (30-150) Cholesterol Level 181 MG/DL (< 200) LDL Cholesterol 92 mg/dL (<100) HDL Cholesterol 76 MG/DL (40-60) H Cholesterol/HDL Ratio 2.4 (3.3-4.4) L Amylase Level 51 U/L (25-115) Prostate Specific Antigen 0.34 ng/mL (0.13-4.0) Thyroid Stimulating Hormone (TSH) 2.328 uiU/mL (0.358-3.740) Plan Problems: (1) Intractable abdominal pain Assessment & Plan: 48 year old male otherwise healthy with persistent worsening abdominal pain Weight loss significant Not tolerating p.o. intake Multiple recent studies performed without findings to explain etiology of patient's symptoms no bm no flatus CT as below discussed care plan patient does not feel comfortable going home patient told me that he had remembered some of his history that he had forgotten. Patient states that this may began a year ago after some experiences at work and when he gets frustrated since he could not immediately get a GI eval at that time he went and [facility] who began to prescribe him sugar tablets as well as some other medications. Did not help significantly. States that he is been recommended tried Linzess before but was not approved by his insurance company. am labs will discuss with patients PCP iv fluid hydration will follow with abdominal exam clear liquid diet will d/c on liquids with slow gradual increase in diet upon d/c thank you Lack of enteric contrast limits assessment of the GI tract. No evidence of colonic diverticulosis or diverticulitis. The appendix is normal. No small bowel distention. No free or loculated intraperitoneal gas or fluid is evident. The distal esophagus, stomach, duodenum are unremarkable. The liver demonstrates a lesion at the tip of the right hepatic lobe which measures 3 cm in diameter. This is mostly hypoattenuation, but demonstrates some intense peripheral enhancement. There there are 2 1 cm diameter cysts in segment 8. Other subcentimeter low-attenuation liver lesions are demonstrated which are too small to characterize. The pancreas, spleen, adrenals are unremarkable. The kidneys demonstrate cysts bilaterally. No renal or ureteral calculi, hydronephrosis, or hydroureter demonstrated. The bladder is unremarkable. No pelvic mass or adenopathy. The included lung bases are clear. The bones are unremarkable. Impression: Limited assessment of the GI tract, due to lack of enteric contrast administration No definite acute abnormality 3 cm right lobe liver lesion, appearance highly suggestive of but not diagnostic for benign hemangioma. Recommend further evaluation with hemangioma protocol CT or MRI Incidental finding of hepatic and renal cysts. Subcentimeter low-attenuation liver lesions are too small to characterize, most likely represent benign simple cysts and no further follow-up is necessary. Nakul Love Oct 10, 2019 19:49
[2019-10-10 20:00] VITALS: BP 95/69
[2019-10-10] MEDS: Nulytely 4L ORAL SCH (23:00)
[2019-10-11 04:00] VITALS: BP 102/60
[2019-10-11 05:38] LABS: BASOPHILS % (AUTO) 0.4 % (0.0-2.0); EOSINOPHILS % (AUTO) 3.2 % (0.0-3.0); HEMOGLOBIN 13.6 G/DL (14.2-18.0); LYMPHOCYTES % (AUTO) 25.8 % (20.0-45.0); MEAN CORPUSCULAR VOLUME 87 FL (80-99); MONOCYTES % (AUTO) 6.1 % (1.0-10.0); NEUTROPHILS % (AUTO) 64.5 % (45.0-75.0); PLATELET COUNT 127 K/UL (150-450); RED BLOOD COUNT 4.49 M/UL (4.70-6.10); RED CELL DISTRIBUTION WIDTH 11.1 % (11.6-14.8); WHITE BLOOD COUNT 4.1 K/UL (4.8-10.8)
[2019-10-11 06:00] LABS: ALANINE AMINOTRANSFERASE 15 U/L (12-78); ALBUMIN 3.4 G/DL (3.4-5.0); ALBUMIN/GLOBULIN RATIO 1.4 (1.0-2.7); ALKALINE PHOSPHATASE 40 U/L (46-116); ANION GAP 7 mmol/L (5-15); ASPARTATE AMINO TRANSFERASE 13 U/L (15-37); BILIRUBIN,TOTAL 0.5 MG/DL (0.2-1.0); BLOOD UREA NITROGEN 12 mg/dL (7-18); CALCIUM 9.6 MG/DL (8.5-10.1); CARBON DIOXIDE 29 MMOL/L (21-32); CHLORIDE 109 MMOL/L (98-107); POTASSIUM 4.1 MMOL/L (3.5-5.1); SODIUM 145 MMOL/L (136-145)
--- NOTE | 2019-10-11 07:09 | NUR ---
HAND-OFF: Report given to SEYMOUR Mccormack. Pt is awake and in stable condition. Plan of care endorsed.
--- NOTE | 2019-10-11 07:22 | NUR ---
NURSE NOTES: awake/alert.pain scale 4/10. in no acute distress.
--- NOTE | 2019-10-11 07:40 | General Progress Note ---
Assessment/Plan Assessment/Plan: abd pain constipation wt loss liver hemangioma? Linzess simethicone probiotics tumor markers CXR>>>reviewed had multiple watery BM advance diet ok to dc GI stand point needs out patient fu Subjective ROS Limited/Unobtainable: Yes Allergies: Coded Allergies: No Known Allergies (Unverified , 10/09/19) Objective Last 24 Hour Vital Signs Date Time Temp Pulse Resp B/P (MAP) Pulse Ox O2 Delivery O2 Flow Rate FiO2 10/11/19 04:00 97.2 54 18 102/60 (74) 99 10/10/19 21:00 Room Air 10/10/19 20:00 97.8 70 16 95/69 (78) 95 10/10/19 16:00 97.9 51 20 114/68 (83) 98 10/10/19 12:00 97.9 63 20 119/79 (92) 100 10/10/19 09:00 Room Air 10/10/19 08:00 98.6 59 18 112/64 (80) 98 Intake and Output 10/10/19 10/11/19 19:00 07:00 Intake Total 800 ml 850 ml Balance 800 ml 850 ml Intake Oral 800 ml 850 ml # Voids 4 Laboratory Tests 10/11/19 05:10: White Blood Count 4.1L, Red Blood Count 4.49L, Hemoglobin 13.6L, Hematocrit 39.0L, Mean Corpuscular Volume 87, Mean Corpuscular Hemoglobin 30.3, Mean Corpuscular Hemoglobin Concent 34.9, Red Cell Distribution Width 11.1L, Platelet Count 127L, Mean Platelet Volume 6.1L, Neutrophils (%) (Auto) 64.5, Lymphocytes (%) (Auto) 25.8, Monocytes (%) (Auto) 6.1, Eosinophils (%) (Auto) 3.2H, Basophils (%) (Auto) 0.4, Sodium Level 145, Potassium Level 4.1, Chloride Level 109H, Carbon Dioxide Level 29, Anion Gap 7, Blood Urea Nitrogen 12, Creatinine 1.0, Estimat Glomerular Filtration Rate > 60, Glucose Level 82, Calcium Level 9.6, Total Bilirubin 0.5, Aspartate Amino Transf (AST/SGOT) 13L, Alanine Aminotransferase (ALT/SGPT) 15, Alkaline Phosphatase 40L, Total Protein 5.9L, Albumin 3.4, Globulin 2.5, Albumin/Globulin Ratio 1.4, Alpha Fetoprotein [ Pending], Carcinoembryonic Antigen [Pending], CA 19-9 Antigen [Pending], Free Thyroxine 0.98 Height (Feet): 5 Height (Inches): 11.00 Weight (Pounds): 162 General Appearance: alert EENT: normal ENT inspection Neck: supple Cardiovascular: normal rate Respiratory/Chest: lungs clear Abdomen: normal bowel sounds, non tender, soft Extremities: non-tender Vipul Beal MD Oct 11, 2019 07:40
[2019-10-11 08:00] VITALS: BP 110/72
[2019-10-11] MEDS: Docusate 100mg cap ORAL SCH (08:39)
[2019-10-11] MEDS: Lactobacillus-GG tablet ORAL SCH (08:40)
[2019-10-11] MEDS: LINACLOTIDE 290 MCG ORAL SCH (09:14)
--- NOTE | 2019-10-11 11:51 | NUR ---
NURSE NOTES: Spoke to regarding patient and cleared to discharge surgical standpoint. Order noted and carried out.
[2019-10-11 12:00] VITALS: BP 114/68
--- NOTE | 2019-10-11 12:16 | Surgery Progress Note ---
Surgery Progress Note Subjective Symptoms: improved, tolerating diet, voiding well, passing flatus Objective Last 24 Hour Vital Signs Date Time Temp Pulse Resp B/P (MAP) Pulse Ox O2 Delivery O2 Flow Rate FiO2 10/11/19 09:21 Room Air 10/11/19 08:00 97.8 59 22 110/72 (85) 99 10/11/19 04:00 97.2 54 18 102/60 (74) 99 10/10/19 21:00 Room Air 10/10/19 20:00 97.8 70 16 95/69 (78) 95 10/10/19 16:00 97.9 51 20 114/68 (83) 98 I&O Intake and Output 10/10/19 10/11/19 19:00 07:00 Intake Total 800 ml 850 ml Balance 800 ml 850 ml Intake Oral 800 ml 850 ml # Voids 4 Cardiovascular: RSR Respiratory: clear Abdomen: soft, non-tender, present bowel sounds Extremities: no edema, no tenderness, no cyanosis Laboratory Tests Test 10/11/19 05:10 White Blood Count 4.1 K/UL (4.8-10.8) L Red Blood Count 4.49 M/UL (4.70-6.10) L Hemoglobin 13.6 G/DL (14.2-18.0) L Hematocrit 39.0 % (42.0-52.0) L Mean Corpuscular Volume 87 FL (80-99) Mean Corpuscular Hemoglobin 30.3 PG (27.0-31.0) Mean Corpuscular Hemoglobin Concent 34.9 G/DL (32.0-36.0) Red Cell Distribution Width 11.1 % (11.6-14.8) L Platelet Count 127 K/UL (150-450) L Mean Platelet Volume 6.1 FL (6.5-10.1) L Neutrophils (%) (Auto) 64.5 % (45.0-75.0) Lymphocytes (%) (Auto) 25.8 % (20.0-45.0) Monocytes (%) (Auto) 6.1 % (1.0-10.0) Eosinophils (%) (Auto) 3.2 % (0.0-3.0) H Basophils (%) (Auto) 0.4 % (0.0-2.0) Sodium Level 145 MMOL/L (136-145) Potassium Level 4.1 MMOL/L (3.5-5.1) Chloride Level 109 MMOL/L (98-107) H Carbon Dioxide Level 29 MMOL/L (21-32) Anion Gap 7 mmol/L (5-15) Blood Urea Nitrogen 12 mg/dL (7-18) Creatinine 1.0 MG/DL (0.55-1.30) Estimat Glomerular Filtration Rate > 60 mL/min (>60) Glucose Level 82 MG/DL (74-106) Calcium Level 9.6 MG/DL (8.5-10.1) Total Bilirubin 0.5 MG/DL (0.2-1.0) Aspartate Amino Transf (AST/SGOT) 13 U/L (15-37) L Alanine Aminotransferase (ALT/SGPT) 15 U/L (12-78) Alkaline Phosphatase 40 U/L (46-116) L Total Protein 5.9 G/DL (6.4-8.2) L Albumin 3.4 G/DL (3.4-5.0) Globulin 2.5 g/dL Albumin/Globulin Ratio 1.4 (1.0-2.7) Alpha Fetoprotein Pending Carcinoembryonic Antigen Pending CA 19-9 Antigen Pending Free Thyroxine 0.98 NG/DL (0.76-1.46) Plan Problems: (1) Intractable abdominal pain Assessment & Plan: 48 year old male otherwise healthy with persistent worsening abdominal pain Weight loss significant Not tolerating p.o. intake Multiple recent studies performed without findings to explain etiology of patient's symptoms no bm no flatus CT as below discussed care plan patient does not feel comfortable going home patient told me that he had remembered some of his history that he had forgotten. Patient states that this may began a year ago after some experiences at work and when he gets frustrated since he could not immediately get a GI eval at that time he [facility] and [facility] who began to prescribe him sugar tablets as well as some other medications. Did not help significantly. States that he is been recommended tried Linzess before but was not approved by his insurance company. am labs will discuss with patients PCP iv fluid hydration will follow with abdominal exam clear liquid diet will d/c on liquids with slow gradual increase in diet upon d/c improving d/c home outpatient pcp and GI f/u thank you Lack of enteric contrast limits assessment of the GI tract. No evidence of colonic diverticulosis or diverticulitis. The appendix is normal. No small bowel distention. No free or loculated intraperitoneal gas or fluid is evident. The distal esophagus, stomach, duodenum are unremarkable. The liver demonstrates a lesion at the tip of the right hepatic lobe which measures 3 cm in diameter. This is mostly hypoattenuation, but demonstrates some intense peripheral enhancement. There there are 2 1 cm diameter cysts in segment 8. Other subcentimeter low-attenuation liver lesions are demonstrated which are too small to characterize. The pancreas, spleen, adrenals are unremarkable. The kidneys demonstrate cysts bilaterally. No renal or ureteral calculi, hydronephrosis, or hydroureter demonstrated. The bladder is unremarkable. No pelvic mass or adenopathy. The included lung bases are clear. The bones are unremarkable. Impression: Limited assessment of the GI tract, due to lack of enteric contrast administration No definite acute abnormality 3 cm right lobe liver lesion, appearance highly suggestive of but not diagnostic for benign hemangioma. Recommend further evaluation with hemangioma protocol CT or MRI Incidental finding of hepatic and renal cysts. Subcentimeter low-attenuation liver lesions are too small to characterize, most likely represent benign simple cysts and no further follow-up is necessary. Nakul Love Oct 11, 2019 12:16
--- NOTE | 2019-10-11 12:18 | Discharge Summary ---
Discharge Summary Hospital Course Date of Admission Oct 09, 2019 at 18:45 Date of Discharge Admitting Diagnosis intractable abdominal pain [facility] is a 48 year old male who was admitted on Oct 09, 2019 at 18: 45 for Intractable Abdominal Pain Hospital Course 48-year-old male with no significant PMH presents to [facility] [place] for LLQ abdominal pain and constipation for 3 to 4 days. Of note, pt had significant w/u including hepatitis and HIV and thyroid studies as an outpatient. Liver studies were all normal, pt has had a GI transit study at [facility] but results currently not available. He had an MRI at [facility] and states that only identified a hemangioma. On admission, patient was given GoLYTELY with good response, had multiple BMs. Patient notes abdominal pain is stable, pain today 09/28. Denies any N/V. GI consulted, recommended patient to advance diet as tolerated, start Linzess for constipation. Patient currently stable, symptoms improved, patient stable for DC at this time with instructions to follow-up with PCP and GI as outpatient for follow-up on tumor markers. #Abdominal pain #Constipation #Weight loss -s/p GoLYTELY with good response, loose BMs in AM -linzess -probiotics -CXR negative -tumor markers ordered, pt to f/u w/PCP for results -GI consulted, Dr. Emigdio TAY for d/c, linzess -General sx following - advance diet as tolerated -f/u w/PCP as o/p -f/u w/GI as o/p #Liver hemangioma -seen on CT Abd/pelvis -pt had o/p MRI which showed hemangioma -f/u w/PCP and GI as o/p #Anxiety #Insomnia -cont. ativan PRN for anxiety -temazepam 15 mg qHS General: NAD, A&O x 3, ambulating in room HEENT: NCAT, EOMi, PEERLA, nares patent and no symmetrical, no tonsillar exudates, mucous membranes moist CV: RRR, no murmurs, rubs, or gallops Pulm: CTAB, No wheezes, rhonchi, or rales, no accessory muscle usage or conversational dyspnea GI: Soft, nontender, nondistended, bowel sounds present Neuro: CN 2-12 grossly intact bilaterally, no focal signs. Ext: No lower extremity edema bilaterally Skin: no rashes lesions or ulcers Msk: Joints symmetrical in upper extremity and lower extremity bilaterally, no joint swelling. Lymph: No lymphadenopathy in upper extremity and lower extremity D/c planning >30 mins Discharge Medications New Medications: Linaclotide (Linzess) 145 Mcg Capsule 145 MCG PO DAILY for 30 Days, #30 CAP Lorazepam* (Ativan*) 1 Mg Tablet 1 MG ORAL Q12HR PRN for 14 Days, #28 TAB Temazepam* (Restoril*) 15 Mg Capsule 15 MG ORAL HSPRN PRN for 30 Days, #30 CAP 1 Refill Discharge Condition Upon Discharge: stable Discharge Vital Signs Last Vital Signs Date Time Temp Pulse Resp B/P (MAP) Pulse Ox O2 Delivery O2 Flow Rate FiO2 10/11/19 09:21 Room Air 10/11/19 08:00 97.8 59 22 110/72 (85) 99 Discharge Disposition Patient was discharged to home Discharge Diagnoses: (1) Constipation (2) Anxiety (3) Hepatic hemangioma (4) Intractable abdominal pain (5) Insomnia (6) Weight loss Discharge Instructions Discharge Instructions Additional Diet Information: Clear liquid diet, advance as tolerated. FODMAP diet. Activity: resume normal activities Special Instructions F/u w/PCP and GI as o/p. Sangeetha Nicole M.D. Oct 11, 2019 12:18
[2019-10-11] MEDS ORDERED: LINZESS145 MCG PO (12:23)
[2019-10-11] MEDS ORDERED: RESTORIL15 MG ORAL (12:23)
[2019-10-11] MEDS ORDERED: ATIVAN1 MG ORAL (12:23)
--- NOTE | 2019-10-11 12:26 | Discharge Instructions ---
Discharge Instructions Discharge Instructions Follow up with: PCP and your choice GI as o/p Call MD/Return to Hospital if: symptoms worsen Follow Up Orders f/u w/PCP and GI as o/p. Advance diet as tolerated. For Congestive Heart Failure Reminder Report to your physician any weight gain of 5 pounds or more in one week. Sangeetha Nicole M.D. Oct 11, 2019 12:26
--- NOTE | 2019-10-11 13:00 | NUR ---
NURSE NOTES: DISCHARGED HOME IN STABLE CONDITION. DC INSTRUCTIONS AND RX GIVEN.
[2019-10-11] MEDS ORDERED: HydrALAZINE 10mg Tab ORAL PRN (13:15)
--- NOTE | 2019-10-12 13:14 | NUR ---
*-* INSURANCE *--* ALL CLINICALS AND REVIEWS HAVE BEEN FAXED TO: [facility] Ref# [id number] fax# [phone] this was given to me by employment representative.
== END 2019-10-11 13:00 | disposition home or self-care (01) | DRG 392 ==
LOC: EMR 16:12 → 3E 18:45 → EDBEDREQ 21:00
DX: K59.00 Constipation, unspecified (principal); D18.03 Hemangioma of intra-abdominal structures; F41.9 Anxiety disorder, unspecified; G47.00 Insomnia, unspecified; R63.4 Abnormal weight loss
CPT/HCPCS: 36415; 71046; 74177; 80053; 80061; 81003; 82105; 82150; 82378; 83036; 83690; 83880; 84153; 84439; 84443; 85025; 85610; 85651; 85730; 86140; 99285; J2765